=== PATIENT | male | born 1980 | race Caucasian/White ===

== ENCOUNTER 2021-04-27 14:35 | Emergency (ER) | payer OTHER, SELFPAY ==
[2020-06-23 15:58] VITALS: BMI 23.0
[2021-04-27 14:36] VITALS: BP 164/87; PULSE 55; RESP 18; TEMP 36.7; O2SAT 98; BMI 22.3
--- NOTE | 2021-04-27 15:03 | RAD_ITS ---
STUDY: X-RAY - LEFT SHOULDER REASON FOR EXAM: Male, 41 years old. Injury, pain TECHNIQUE: 4 view(s) of the shoulder. COMPARISON: None. FINDINGS: Normal glenohumeral articulation. There is no widening of the coracoclavicular distance. There is widening of the AC joint, but without displacement of the clavicle or widening of the coracoclavicular distance, consistent with a Type II acromioclavicular joint separation. Normal acromion. Normal humeral head and visualized proximal humerus. The soft tissue structures are unremarkable. Normal visualized pulmonary apex. RAD/Shoulder min 2 Views IMPRESSION: Grade 2 acromioclavicular joint separation. Electronically Signed: Edilberto Gomez MD at 15:20 EDT Tel , Service support ,
--- NOTE | 2021-04-27 15:12 | EX.ED.UPPERE ---
HPI History of Present Illness Chief Complaint: Upper Extremity Injury Informant: patient Narrative Narrative: Patient is a 41-year-old previously healthy male who [facility] to the [facility] for left shoulder injury. He states that he fell into a cabinet this morning. He describes the pain at rest as a 4 out of 10. Any movement seems to jump up to a 9 out of 10. He tried taking ibuprofen for it which did not give him any relief. Moving the arm makes his symptoms worse. He can get the shoulder up to 90 degrees but then the pain becomes severe. He denies any headache, neck pain. No other injury. Did not hit his head or lose consciousness. He denies any loss of sensation in the hand or down the arm. No previous injury to the arm. He is right-handed at baseline. PFSH PFSH Allergy/AdvReac Type Severity Reaction Status Date / Time No Known Allergies Allergy Verified 04/27/21 14:38 Social History Smoking Status: Never smoker alcohol intake: never ROS ROS ED Constitutional Constitutional ED: Denies chills or fever(s) Eyes Eyes: Denies change in vision ENT ENT ED: Denies epistaxis or rhinorrhea Cardiovascular Cardiovascular: Denies chest pain or palpitations Respiratory/Chest Respiratory/Chest: Denies cough, dyspnea or dyspnea on exertion Gastrointestinal Gastrointestinal: Denies abdominal pain, diarrhea, nausea or vomiting Musculoskeletal Musculoskeletal: Reports other Details: Shoulder pain ; Denies back pain or neck pain Integumentary Denies rash Neurologic Neurologic: Denies dizziness, headache(s) or weakness EXAM Physical Exam Const Vital Signs: 04/27/21 14:36 Temperature 98.1 F Temperature Source Temporal Pulse Rate 55 L Respiratory Rate 18 Blood Pressure 164/87 H Blood Pressure Mean 112 Pulse Ox 98 Oxygen Delivery Method Room Air Positive well nourished and well developed General Appearance ED: well developed and NAD HEENT Reports normocephalic, head/scalp atraumatic and moist mucous membranes Eyes PERRL and EOMs intact bilaterally Neck supple General: Negative for tenderness Resp normal respiratory effort and clear to auscultation bilaterally Auscultation: Negative for rales, rhonchi or wheezes Cardio regular rate, regular rhythm and no murmurs GI normal to inspection, nondistended, normoactive bowel sounds and non-tender Palpation: soft; Negative for guarding or rebound tenderness present Back/Spine Cervical Spine: Negative for cervical spine tenderness Thoracic Spine / Upper Back: Negative for thoracic spinal tenderness Lumbar Spine / Lower Back: Negative for lumbar spinal tenderness Extremity normal to inspection Extremity Narrative: Tenderness to the superior aspect of the left shoulder. No obvious deformity. 2+ radial pulse. Sensation intact. [employer] strength. General Extremety ED: Negative for edema or tenderness General Extremity: Negative for edema Neuro oriented x3, CN's II-XII intact bilaterally and no sensory deficits noted Sensorium / Orientation: alert Motor Exam: strength 5/5 throughout Psych mental status grossly normal Skin no rashes or lesions noted MDM MDM MDM Narrative Medical decision making narrative: Patient presents to the ED for left shoulder pain after hitting it against a cabinet. On arrival to the ED he is mildly hypertensive otherwise normal vital signs. She is in no acute distress. His left arm is neurovascular intact. Will check x-ray. Radiologist interpreted the x-ray as a type II acromioclavicular joint separation. Patient placed in a splint and given orthopedic referral. Will recommend symptomatic management in the meantime. He has remained neurovascularly intact. Return precautions are reviewed with him. He understands and is agreeable this plan. All questions answered. Radiography Diagnostic Testing: Shoulder x-ray showed a grade 2 AC joint separation. No obvious fracture or dislocation of the humerus. Clear lung astudillo. Discharge Plan Triage Chief Complaint: Upper Extremity Injury ED Provider: Te Pacheco Dx/Rx/DC Orders Clinical Impression: Acromioclavicular joint separation, type 2 Instructions: ED Sprain AC Joint Primary Care Provider: Care Physician,No Primary Referrals: Te Gonzalez DO [STAFF PHYSICIAN] - 3-5 Days Care Physician,No Primary [Primary Care Provider] - Disposition Disposition: Home, self care Discharge Date/Time: 04/27/21 16:03
== END 2021-04-27 16:03 | disposition home or self-care (01) ==
PROVIDERS: Emergency Provider Emergency Medicine
DX: S43.102A Unspecified dislocation of left acromioclavicular joint, initial encounter (principal); W19.XXXA Unspecified fall, initial encounter; Y93.9 Activity, unspecified; Y92.9 Unspecified place or not applicable; Y99.9 Unspecified external cause status
CPT/HCPCS: 73030; 99283